=== PATIENT | female | born 1980 | race American Indian/Alaskan Native ===

== ENCOUNTER 2020-01-31 06:35 | Day surgery (SDC) | payer OTHER ==
[~2020-01-31 06:35] MED LIST: SODIUM CHLORIDE 0.9% 1000 ML 1,000 ML, EPINEPHrine/PF 1:1,000 1 MG, LIDOCAINE 1% 20 mL ... IJ SCH; ceFAZolin/Water 2 GM/20 ML 2 GM/20 ML SYRINGE IV NR
[2020-01-31] MEDS ORDERED: LACTATED RINGERS 1,000 ML ONE (06:52)
[2020-01-31] MEDS ORDERED: BACTERIOSTATIC SODIUM CHLORIDE 0.9% 30 ML VIAL INFILTRATI ONE (06:53)
[2020-01-31] MEDS ORDERED: MIDAZOLAM 2 MG/2 ML INJ IV ONE (06:54)
[2020-01-31] MEDS ORDERED: LACTATED RINGERS 1,000 ML IV SCH (07:00)
--- NOTE | 2020-01-31 07:49 | Anesthesia Consultation ---
Anesthesia Consult and Med Hx - Airway Anesthetic Teeth Evaluation: Good ROM Head & Neck: Adequate Mental/Hyoid Distance: Adequate Mallampati Class: Class II - Pulmonary Exam CTA: Yes - Cardiac Exam Cardiac Exam: RRR - Pre-Operative Health Status ASA Pre-Surgery Classification: ASA1 Proposed Anesthetic Plan: General - Pre-Anesthesia Comment Pre-Anesthesia Comments: braces placed yesterday - Central Nervous System Hx Back Pain: Yes Hx Psychiatric Problems: No - Other Systems Hx Alcohol Use: Yes Hx Substance Use: No Hx Cancer: No
--- NOTE | 2020-01-31 07:50 | Anesthesia Day of Surgery ---
Anesthesia Day of Surgery - Day of Surgery Patient Examined: Yes Patient H&P Reviewed: Yes Patient is NPO: Yes
[2020-01-31] MEDS ORDERED: ONDANSETRON 4 MG/2 ML INJ IV PRN (08:04)
[2020-01-31] MEDS ORDERED: fentaNYL 100 MCG/2 ML INJ IV PRN (08:04)
[2020-01-31] MEDS ORDERED: LIDOCAINE 1%/EPINEPHRINE 1:100,000 VIAL (20 ML) INFILTRATI ONE ×3 (08:18→10:02)
[2020-01-31] MEDS ORDERED: PHENYLEPHRINE/NS 1,000 MCG/10 ML SYRINGE (OR USE) IV ONE (08:37)
[2020-01-31] MEDS ORDERED: fentaNYL 250 MCG/5 ML INJ ONE (08:37)
[2020-01-31] MEDS ORDERED: LIDOCAINE MPF (2%) 20 MG/1 ML VIAL 5 ML ONE (08:37)
[2020-01-31] MEDS ORDERED: SUCCINYLCHOLINE CHLORIDE 200 MG/10 ML INJ MDV ONE (08:37)
[2020-01-31] MEDS ORDERED: NEOSTIGMINE 10MG/10 ML INJ MDV ONE (08:37)
[2020-01-31] MEDS ORDERED: ROCURONIUM 50 MG/5 ML INJ IV ONE (08:37)
[2020-01-31] MEDS ORDERED: GLYCOPYRROLATE 0.4 MG/2 ML INJ ONE (08:37)
[2020-01-31] MEDS ORDERED: dexAMETHasone 20 MG/5 ML VIAL ONE (08:37)
[2020-01-31] MEDS ORDERED: propofoL 200 MG/20 ML VIAL IV ONE (08:38)
[2020-01-31] MEDS ORDERED: SODIUM CHLORIDE 0.9% IRR 1,500 ML BOTTLE IR ONE (10:02)
[2020-01-31] MEDS ORDERED: HYDROmorphone 1 MG/1 ML INJ ONE (12:10)
--- NOTE | 2020-01-31 12:33 | Operative Report ---
Operative Report Operative Report: Plastic Surgery Operative Note Preoperative Diagnosis: Unacceptable cosmetic appearance Postopertive Diagnosis: Same Procedure: Liposuction of upper and lower abdomen, anterior waistline; Partial abdominoplasty Surgeon: Dr. Gabbie Daniel Business Development Specialist: None Anesthesia: General endotracheal EBL: Minimal Indications: This patient is a 39 year old AAF who presented with complaint of excess fat and skin of the lower abdomen. She was determined to have intact rectus abdominus muscle integrity and a lower abdominal focus of excess skin so the recommendation was made for partial lipoabdominoplasty. We discussed the benefits and risks of surgery including implant rupture, infection, bleeding, hematoma, seroma, scarring and the need for further surgery. Patient understands and accepts these risks and desires to proceed with surgery. Procedure: After marking in preoperative holding the patient was brought into the operating room and placed supine on the OR table. After induction of adequate general endotracheal anesthesia, the patient's chest and abdomen were prepped and draped in the usual sterile surgical fashion. To begin, markings were refreshed and 1% lidocaine with epinephrine was injected into the incisions. Using an 11 blade, cannula entry incisions were made in the lower abdomen, and 1.5 L of tumescent solution was infiltrated into the tissues of the abdomen and flanks. Power assisted liposcution was performed until aspirate was blood-tinged, for a total of 2000cc, 800cc of which was pure fat. We then began the mini tuck portion of the procedure, creating a lower abdominal incision using a 10 blade, which was carried through subcutaneous tissue using the electrocautery. Skin removed weighed a total of 180 grams. A 15 Fr Phillip drain was placed and secured with a 2-0 Nylon suture and we began closure of her incisions in 3 layers beginning with a PDO Quill suture to approximate Rudy's fascia follwed by 3-0 Monoderm Quill in 2 layers. All incisions were selaed with Dermabond. ABD pads were placed on the abdomen, a compression garment and binder. Patient was then awakened from general anesthesia and transferred to PACU in stable condition. There were no complications. All sponge, needle and instrument counts were correct at the end of the case.
[2020-01-31] MEDS: HYDROmorphone 1 MG/1 ML INJ IV PRN ×2 (12:49→12:56)
[2020-01-31] MEDS ORDERED: diphenhydrAMINE 50 MG/ML VIAL IV ONE (13:09)
--- NOTE | 2020-01-31 13:18 | Post Anesthesia Evaluation ---
- Post Anesthesia Evaluation Patient Participated: Yes Airway Patent: Yes Stable Respiratory Function: Yes Nausea/Vomiting: No Temp > 96.8F: Yes Pain Manageable: Yes Adequeate Hydration: Yes Anesthesia Complications: No
[2020-01-31 13:40] VITALS: BP 125/81
== END 2020-01-31 14:11 | disposition home or self-care (01) ==
LOC: OR 06:35
PROVIDERS: ATTEND Plastic Surgery
DX: Z41.1 Encounter for cosmetic surgery (principal); M19.90 Unspecified osteoarthritis, unspecified site; Z79.899 Other long term (current) drug therapy; Z98.891 History of uterine scar from previous surgery; Z72.89 Other problems related to lifestyle; Z98.890 Other specified postprocedural states
CPT/HCPCS: 15877; 17999; 81025; J0171; J0330; J0690; J1100; J1170; J1200; J2250; J2370; J2405; J2704; J2710; J3010; J7030; J7120